=== PATIENT | male | born 1975 | race Hispanic/Latino ===

== ENCOUNTER 2016-11-05 15:35 | Emergency (ER) | payer MEDICARE ==
[2016-11-05 16:06] LABS: Basophils % (Auto) 0.7 % (0.0-1.8); Eosinophils % (Auto) 1.4 % (0.0-4.3); Hematocrit 37.9 % (35.5-45.6); Mean Corpuscular HGB Conc 34 % (32-34); Mean Corpuscular Hemoglobin 30 pg (28-32); Mean Corpuscular Volume 87 fl (84-94); Platelet Count 224 K/mm3 (140-440); Red Blood Count 4.37 M/mm3 (3.65-5.03); Red Cell Distribution Width 13.6 % (13.2-15.2); White Blood Count 6.9 K/mm3 (4.5-11.0)
[2016-11-05 16:23] LABS: Anion Gap 18 mmol/L; BUN/Creatinine Ratio 18.57; Blood Urea Nitrogen 13 mg/dL (9-20); Calcium 8.7 mg/dL (8.4-10.2); Carbon Dioxide 23 mmol/L (22-30); Chloride 101.8 mmol/L (98-107); Glucose 98 mg/dL (75-100); Potassium 3.5 mmol/L (3.6-5.0); Sodium 139 mmol/L (137-145)
[2016-11-05 16:30] LABS: Urine Drugs of Abuse Note Disclamer
[2016-11-05 16:44] LABS: Bilirubin,Urine NEG (Negative); Blood,Urine NEG (Negative); Ketones,Urine NEG (Negative); Leukocyte Esterase,Urine NEG (Negative); Mucus,Urine FEW /HPF; Nitrite,Urine NEG (Negative); Protein,Urine <15 mg/dL mg/dL (Negative); RBC,Urine < 1.0 /HPF (0.0-6.0); Urobilinogen,Urine < 2.0 mg/dL (<2.0)
--- NOTE | 2016-11-05 19:10 | Emergency Department Report ---
ED Psych HPI - General Chief Complaint: Psych Stated Complaint: 1013 Time Seen by Provider: 11/05/16 17:33 Source: patient Mode of arrival: Ambulatory - History of Present Illness Initial Comments: 41-year-old male with a history of psychiatric illness not taking his meds here with complaint of suicidality. He is feeling very anxious and depressed and wants to harm himself. He does not have a current plan. He has in the past taken pills although he does not have access to any pills currently MD Complaint: suicidal ideation -: Gradual Associated Psychiatric Symptoms: depression, suicidal ideation, racing thoughts History of same: Yes Quality: constant Improves With: none Worsens With: none Context: not taking psychiatric Associated Symptoms: other. denies: confusion, headache, shortness of breath, nausea, vomiting, syncope, insomnia - Related Data Allergies Allergy/AdvReac Type Severity Reaction Status Date / Time No Known Allergies Allergy Unverified 11/05/16 15:41 ED Review of Systems ROS: Stated complaint: 1013 Other details as noted in HPI Comment: All other systems reviewed and negative Constitutional: denies: chills, fever Eyes: denies: eye pain, eye discharge, vision change ENT: denies: ear pain, throat pain Respiratory: denies: cough, shortness of breath, wheezing Cardiovascular: denies: chest pain, palpitations Endocrine: no symptoms reported Gastrointestinal: denies: abdominal pain, nausea, diarrhea Genitourinary: denies: urgency, dysuria Musculoskeletal: denies: back pain, joint swelling, arthralgia Skin: denies: rash, lesions Neurological: denies: headache, weakness, paresthesias Psychiatric: anxiety, depression, suicidal thoughts Hematological/Lymphatic: denies: easy bleeding, easy bruising ED Past Medical Hx - Past Medical History Previous Medical History?: No Hx Psychiatric Treatment: Yes (DEPRESSION / ANXIETY / PARANOIA / BIPOLAR / SCHIZOPHRENIA) - Surgical History Past Surgical History?: No - Family History Family history: no significant - Social History Smoking Status: Former Smoker Substance Use Type: Prescribed ED Physical Exam - General Limitations: No Limitations General appearance: alert, in no apparent distress - Head Head exam: Present: atraumatic, normocephalic - Eye Eye exam: Present: normal appearance - ENT ENT exam: Present: mucous membranes moist - Neck Neck exam: Present: normal inspection - Respiratory Respiratory exam: Present: normal lung sounds bilaterally. Absent: respiratory distress - Cardiovascular Cardiovascular Exam: Present: regular rate, normal rhythm. Absent: systolic murmur, diastolic murmur, rubs, gallop - GI/Abdominal GI/Abdominal exam: Present: soft, normal bowel sounds - Rectal Rectal exam: Present: deferred - Extremities Exam Extremities exam: Present: normal inspection - Back Exam Back exam: Present: normal inspection - Neurological Exam Neurological exam: Present: alert, oriented X3 - Psychiatric Psychiatric exam: Present: depressed, flat affect, suicidal ideation - Skin Skin exam: Present: warm, dry, intact, normal color. Absent: rash ED Course Vital Signs 11/05/16 11/05/16 15:46 18:35 Temperature 98.0 F Pulse Rate 81 Respiratory 17 20 Rate Blood Pressure 108/71 O2 Sat by Pulse 97 99 Oximetry ED Medical Decision Making - Lab Data Result diagrams: 11/05/16 15:53 11/05/16 15:53 Laboratory Results - last 24 hr 11/05/16 11/05/16 11/05/16 15:53 15:53 15:53 WBC 6.9 RBC 4.37 Hgb 13.0 Hct 37.9 MCV 87 MCH 30 MCHC 34 RDW 13.6 Plt Count 224 Lymph % (Auto) 32.4 [place] % (Auto) 10.5 H Eos % (Auto) 1.4 Baso % (Auto) 0.7 Lymph # 2.2 [place] # 0.7 Eos # 0.1 Baso # 0.0 Seg Neutrophils % 55.0 Seg Neutrophils # 3.8 Sodium 139 Potassium 3.5 L Chloride 101.8 Carbon Dioxide 23 Anion Gap 18 BUN 13 Creatinine 0.7 L Estimated GFR > 60 BUN/Creatinine Ratio 18.57 Glucose 98 Calcium 8.7 Urine Color Urine Turbidity Urine pH Ur Specific [place] Urine Protein Urine Glucose (UA) Urine Ketones Urine Blood Urine Nitrite Urine Bilirubin Urine Urobilinogen Ur Leukocyte Esterase Urine WBC (Auto) Urine RBC (Auto) U Epithel Cells (Auto) Urine Mucus Urine Opiates Screen Urine Methadone Screen Ur Barbiturates Screen Ur Phencyclidine Scrn Ur Amphetamines Screen U Benzodiazepines Scrn Urine Cocaine Screen U Marijuana (THC) Screen Drugs of Abuse Note Plasma/Serum Alcohol < 0.01 11/05/16 11/05/16 16:23 16:23 WBC RBC Hgb Hct MCV MCH MCHC RDW Plt Count Lymph % (Auto) [place] % (Auto) Eos % (Auto) Baso % (Auto) Lymph # [place] # Eos # Baso # Seg Neutrophils % Seg Neutrophils # Sodium Potassium Chloride Carbon Dioxide Anion Gap BUN Creatinine Estimated GFR BUN/Creatinine Ratio Glucose Calcium Urine Color Yellow Urine Turbidity Clear Urine pH 6.0 Ur Specific [place] 1.015 Urine Protein <15 mg/dl Urine Glucose (UA) Neg Urine Ketones Neg Urine Blood Neg Urine Nitrite Neg Urine Bilirubin Neg Urine Urobilinogen < 2.0 Ur Leukocyte Esterase Neg Urine WBC (Auto) 1.0 Urine RBC (Auto) < 1.0 U Epithel Cells (Auto) < 1.0 Urine Mucus Few Urine Opiates Screen Presumptive negative Urine Methadone Screen Presumptive negative Ur Barbiturates Screen Presumptive negative Ur Phencyclidine Scrn Presumptive negative Ur Amphetamines Screen Presumptive negative U Benzodiazepines Scrn Presumptive negative Urine Cocaine Screen Presumptive negative U Marijuana (THC) Screen Presumptive negative Drugs of Abuse Note Disclamer Plasma/Serum Alcohol - Medical Decision Making 41-year-old male with history of SI psychiatric illness. Plan tender team patient he will be evaluated by psychiatry. Anticipate hold for placement. Portions of this chart were dictated with dictation software. There may be dictation errors contained within this note. Critical care attestation.: If time is entered above; I have spent that time in minutes in the direct care of this critically ill patient, excluding procedure time. ED Disposition Clinical Impression: Suicidal ideation Disposition: DC/TX-65 PSY HOSP/PSY UNIT Is pt being admited?: No Condition: Stable Referrals: PRIMARY CARE, [Primary Care Provider] - 3-5 Days
--- NOTE | 2016-11-06 14:03 | Consultation ---
History of Present Illness - Reason for Consult Consult date: 11/06/16 Reason for consult: Mental Health Evaluation Requesting physician: ADRIANO BUTLER - Chief Complaint Chief complaint: "It's the voices in the TV" - History of Present Psychiatric Illness 41-year-old male with a history of psychiatric illness not taking his meds here with complaint of suicidality. Today patient is calm and cooperative during the assessment. He stated that he was a patient at [facility] 2 weeks ago. He stated that he ran out of medications and he started experiences voices from the TV ([employer]). He stated the TV is telling him to stay away from [place], [place] and other major cities. He stated that he is suicidal because he want the TV's to stop taking to him. Patient does not have a plan at this time. He stated that he taken Risperdal, Cogentin, and Zoloft. He stated that the Risperdal does not work, he prefer Seroquel. He denies HI's, VH's, but stated that his sleep is erratic because of the voices. He denies recreational drug use and excessive alcohol consumption. Medications and Allergies Allergies Allergy/AdvReac Type Severity Reaction Status Date / Time No Known Allergies Allergy Unverified 11/05/16 15:41 Past psychiatric history - Past Medical History Past Medical History: No medical history Past Surgical History: No surgical history - past Psychiatric treatment and history Psych: Schizophrenia psychiatric treatment history: Patient been in multiple inpatient settings. He denies a fam psy hx. - Social History Social history: other (HS, homeless) Mental Status Exam - Vital signs Last Vital Signs Temp 98 F 11/06/16 05:07 Pulse 79 11/06/16 05:07 Resp 18 11/06/16 10:52 BP 104/72 11/06/16 05:07 Pulse Ox 97 11/06/16 05:07 - Exam Narrative exam: ROS: (+) Psychosis MSE: Appearance: cooperative, calm Behavior: regular eye contact Speech: regular rate and tone Mood: "I am not sure" Affect: labile Thought Process: circumstantial Thought Content: denies HI's and VH's, delusional Motor Activity: ambulatory Cognition: A/Ox 3 Insight: limited Judgment: limited Results Result Diagrams: 11/05/16 15:53 11/05/16 15:53 Abnormal lab results 11/05/16 11/05/16 Range/Units 15:53 15:53 [place] % (Auto) 10.5 H (0.0-7.3) % Potassium 3.5 L (3.6-5.0) mmol/L Creatinine 0.7 L (0.8-1.5) mg/dL All other labs normal. Assessment and Plan Assessment and plan: Impression: Historical Dx: Schizophrenia Paranoid type. Today patient is calm and cooperative during the assessment. Patient is experiencing ideas of reference. DDx: Schizoaffective DO Recommendation/Plan: Continue to 1013 with placement to inpatient psy services. Start Seroquel 100 mg for mood/psychotic symptoms and Cogentin 0.5 mg PO HS for EPS prevention. Discussed possible metabolic side effects of Seroquel with patient.
[2016-11-06] MEDS: COGENTIN PO SCH (22:57)
--- NOTE | 2016-11-07 12:07 | Progress Note ---
Subjective - Reason for Consult Consult date: 11/07/16 Reason for consult: Psychiatry Follow-up - Chief Complaint Chief complaint: "It's the voices in the TV" 41-year-old male with a history of psychiatric illness not taking his meds here with complaint of suicidality. Today patient is calm and cooperative during assessment. He stated that he does not fear the voices from the TV and feel safe now. He stated, "I may have needed rest." He stated that he feel like he can return to [place], [place]. Patient stated that he was born in [place] ( fearful to return to [place] per ideas of reference yesterday). Yesterday, patient was disorganized and delusional with his thoughts. He denies SI/HI's and AVH's. He denies a poor appetite and sleep disturbances. He denies any side effect of his medications. Mental Status Exam - Vital signs Last Vital Signs Temp 98.4 F 11/06/16 23:07 Pulse 94 H 11/06/16 23:07 Resp 18 11/06/16 23:08 BP 136/79 11/06/16 23:07 Pulse Ox 96 11/06/16 23:07 - Exam Narrative exam: MSE: Appearance: cooperative, calm Behavior: regular eye contact Speech: regular rate and tone Mood: "okay" Affect: labile Thought Process: circumstantial Thought Content: denies SI/HI's and AVH's Motor Activity: ambulatory Cognition: A/Ox 3 Insight: limited Judgment: limited Assessment and Plan Impression: Historical Dx: Schizophrenia Paranoid type. Today patient is calm and cooperative during the assessment. Denies AH's. Recommendation/Plan: Continue to 1013 with placement to inpatient psy services. Continue Seroquel 100 mg for mood/psychotic symptoms and Cogentin 0.5 mg PO HS for EPS prevention. Discussed possible metabolic side effects of Seroquel with patient.
[2016-11-07] MEDS: COGENTIN PO SCH (22:18)
[2016-11-08] MEDS: COGENTIN PO SCH (22:19)
--- NOTE | 2016-11-09 12:01 | Progress Note ---
Subjective - Reason for Consult Consult date: 11/09/16 Reason for consult: Psychiatry Follow-up - Chief Complaint Chief complaint: "I feel much better" 41-year-old male with a history of psychiatric illness not taking his meds here with complaint of suicidality. Today patient is calm and cooperative during assessment. He stated that the voices has ceased and denies SI/HI's. He stated that he resides at a local jail. He denies sleep disturbance and a poor appetite. He denies any side effects of his medications. Mental Status Exam - Vital signs Last Vital Signs Temp 97.5 F L 11/09/16 09:38 Pulse 80 11/09/16 09:38 Resp 18 11/09/16 09:38 BP 119/78 11/09/16 09:38 Pulse Ox 97 11/09/16 09:38 - Exam Narrative exam: MSE: Appearance: cooperative, calm Behavior: regular eye contact Speech: regular rate and tone Mood: "okay" Affect: congruent to mood Thought Process: linearl Thought Content: denies SI/HI's and AVH's Motor Activity: ambulatory Cognition: A/Ox 3 Insight: fair Judgment: fair Assessment and Plan Impression: Historical Dx: Schizophrenia Paranoid type. Today patient is calm and cooperative during the assessment. Denies AH's. Patient is no threat to self. Recommendation/Plan: Rescind 1013. Patient can follow-up with outpatient psy services ([facility] Continue Seroquel 100 mg for mood/psychotic symptoms and Cogentin 0.5 mg PO HS for EPS prevention. Discussed possible metabolic side effects of Seroquel with patient. Calibration Tester needed, patient need transportation to jail.
[2016-11-09] MEDS: COGENTIN PO SCH (22:29)
[2016-11-10 16:24] VITALS: BP 138/81
== END 2016-11-10 16:24 | disposition home or self-care (01) ==
LOC: EEVIPCON 15:35 → ED 15:35
DX: R45.851 Suicidal ideations (principal); F41.9 Anxiety disorder, unspecified; Z87.891 Personal history of nicotine dependence; F20.9 Schizophrenia, unspecified
CPT/HCPCS: 36415; 80048; 80307; 81001; 85025; 99284; G0480; 80320

== ENCOUNTER 2022-01-03 11:01 | Emergency (ER) | payer SELFPAY ==
[2022-01-03 13:50] LABS: BUN/Creatinine Ratio 11; Basophils % (Auto) 0.4 % (0.0-1.8); Blood Urea Nitrogen 10 mg/dL (9-20); Calcium 9.4 mg/dL (8.4-10.2); Eosinophils # (Auto) 0.1 K/mm3 (0.0-0.4); Hematocrit 42.9 % (35.5-45.6); Hemolysis Index 16; Lymphocytes # (Auto) 2.4 K/mm3 (1.2-5.4); Lymphocytes % (Auto) 33.5 % (13.4-35.0); Mean Corpuscular HGB Conc 33 % (32-34); Mean Corpuscular Volume 87 fl (84-94); Monocytes # (Auto) 0.6 K/mm3 (0.0-0.8); Monocytes % (Auto) 7.7 % (0.0-7.3); Platelet Count 298 K/mm3 (140-440); Red Blood Count 4.91 M/mm3 (3.65-5.03); Red Cell Distribution Width 14.4 % (13.2-15.2)
[2022-01-03 15:12] LABS: Amphetamine Screen,Urine PRESUMPTIVE NEGATIVE; Benzodiazepines Screen,Urine PRESUMPTIVE NEGATIVE; Cannabinoid Screen,Urine PRESUMPTIVE NEGATIVE; Cocaine Screen,Urine PRESUMPTIVE NEGATIVE; Methadone Screen,Urine PRESUMPTIVE NEGATIVE; Opiate Screen,Urine PRESUMPTIVE NEGATIVE
[2022-01-03 15:32] LABS: Mucus,Urine FEW /HPF
--- NOTE | 2022-01-03 16:29 | Emergency Department Report ---
ED Psych HPI - General Chief Complaint: Psych Stated Complaint: SI/DEPRESSION Time Seen by Provider: 01/03/22 15:37 Source: patient Mode of arrival: Ambulatory - History of Present Illness Initial Comments: 46 yo male with history of depression, bipolar disorder, and schizophrenia presents to the emergency department with an acute onset of anxiety, depression, and suicidal ideations, today. Patient states that he has a plan to overdose on some of his psychiatric medications. However, patient has not made an attempt. Patient denies homicidal ideations or hallucinations. Patient cannot place the event that caused him acute onset of the symptoms. Denies alleviating factors. Reports similar in the past. - Related Data Home Medications Medication Instructions Recorded Confirmed Last Taken Benztropine [Cogentin] 0.5 mg PO QHS 01/03/22 01/03/22 Unknown Zoloft 01/03/22 Unknown risperiDONE [RisperDAL] 01/03/22 Unknown Allergies Allergy/AdvReac Type Severity Reaction Status Date / Time No Known Allergies Allergy Verified 01/03/22 11:16 ED Review of Systems ROS: Stated complaint: SI/DEPRESSION Other details as noted in HPI Comment: All other systems reviewed and negative Constitutional: denies: chills, fever Eyes: denies: eye pain, eye discharge, vision change ENT: denies: ear pain, throat pain Respiratory: denies: cough, shortness of breath, wheezing Cardiovascular: denies: chest pain, palpitations Endocrine: no symptoms reported Gastrointestinal: denies: abdominal pain, nausea, diarrhea Genitourinary: denies: urgency, dysuria Musculoskeletal: denies: back pain, joint swelling, arthralgia Skin: denies: rash, lesions Neurological: denies: headache, weakness, paresthesias Psychiatric: anxiety, depression, suicidal thoughts Hematological/Lymphatic: denies: easy bleeding, easy bruising ED Past Medical Hx - Past Medical History Previous Medical History?: Yes Hx Psychiatric Treatment: Yes (DEPRESSION / ANXIETY / PARANOIA / BIPOLAR / SCHIZOPHRENIA) - Social History Smoking Status: Unknown if ever smoked Substance Use Type: None - Medications Home Medications: Home Medications Medication Instructions Recorded Confirmed Last Taken Type Benztropine [Cogentin] 0.5 mg PO QHS 01/03/22 01/03/22 Unknown History Zoloft 01/03/22 Unknown History risperiDONE [RisperDAL] 01/03/22 Unknown History ED Physical Exam - General Limitations: No Limitations General appearance: alert, in no apparent distress - Head Head exam: Present: atraumatic, normocephalic - Eye Eye exam: Present: normal appearance, PERRL, EOMI - ENT ENT exam: Present: mucous membranes moist - Neck Neck exam: Present: normal inspection - Respiratory Respiratory exam: Present: normal lung sounds bilaterally. Absent: respiratory distress - Cardiovascular Cardiovascular Exam: Present: regular rate, normal rhythm. Absent: systolic murmur, diastolic murmur, rubs, gallop - GI/Abdominal GI/Abdominal exam: Present: soft, normal bowel sounds - Rectal Rectal exam: Present: deferred - Extremities Exam Extremities exam: Present: normal inspection - Back Exam Back exam: Present: normal inspection - Neurological Exam Neurological exam: Present: alert, oriented X3 - Psychiatric Psychiatric exam: Present: depressed, anxious, suicidal ideation. Absent: manic, homicidal ideation - Skin Skin exam: Present: warm, dry, intact, normal color. Absent: rash ED Course Vital Signs 01/03/22 01/03/22 15:16 15:56 Temperature 97.8 F Pulse Rate 70 Respiratory 20 Rate Blood Pressure 116/73 [Right] O2 Sat by Pulse 97 97 Oximetry - Reevaluation(s) Reevaluation #1: 01/03/22 16:27 This patient is medically cleared for mental health evaluation and disposition per their decision. ED Medical Decision Making - Lab Data Result diagrams: 01/03/22 12:51 01/03/22 12:51 - Medical Decision Making This is a 46-year-old male with history of bipolar disorder and schizophrenia who presents to the emergency department complaining of acute onset of anxiety, depression, and suicidal ideations with a plan. Initial vital signs were unimpressive physical exam was concerning for a depressed hearing patient. Patient was placed on a 1013. Patient's blood work was unremarkable. Patient was medically cleared for psychiatric evaluation and disposition. Critical care attestation.: If time is entered above; I have spent that time in minutes in the direct care of this critically ill patient, excluding procedure time. ED Disposition Clinical Impression: Suicidal ideation Disposition: 30 STILL A PATIENT Is pt being admited?: No Condition: Stable
[2022-01-03 17:48] LABS: Bilirubin,Urine NEG (Negative); Blood,Urine NEG (Negative); Color,Urine Yellow (Yellow); Protein,Urine <15 mg/dL mg/dL (Negative); Urobilinogen,Urine < 2 mg/dL (<2.0)
--- NOTE | 2022-01-04 09:24 | Consultation ---
History of Present Illness - Reason for Consult Consult date: 01/04/22 Reason for consult: SI - History of Present Psychiatric Illness The patient was seen today. He is a 46y/o male who states he presented to the ER for SI, depression and anxiety. It appears the patient's symptoms are based around the fact that he has ran out of money. The patient says at that time he though about overdosing on pills. He says he took a greyhound from [place] and been here for 4 days. He says he was staying at a hotel but ran out of money. I ask the patient was that the reason he came to the ER, he says "yes jessica, but my meds are not working either." The patient says he gets his funds at the first of the month. He says right now he is homeless. The patient says he has schizophrenia. He says he takes cogentin 0.5qhs, zoloft 50mg and risperidone 0.5 BID, but he doesn't feel they are working well. 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 He is denying SI/HI or hallcuinations at present. The patient is asking for jail resources. The patient says he is single, and completed the 10th grade. Will adjust the patient medications, and have the mechanism inspector to give the patient outpatient resources and complete safety plan. REVIEW OF SYSTEMS Constitutional: Negative for weight loss ENT: Negative for stridor Respiratory: Negative for cough or hemoptysis All other systems reviewed and are negative MENTAL STATUS EXAMINATION General Appearance and Behavior: Age appropriate, wearing appropriate clothes, polite with questioning, good eye contact Cooperation: cooperative Psychomotor Behavior: Psychomotor increased Mood: better Affect and affective range: congruent with stated mood Thought Process: goal directed Thought Content: within reality Speech: Fast rate and rhythm, normal volume Suicidal Ideation: Denies Homicidal Ideation: Denies Hallucination: Denies Delusions: None elicited Impulse Control: Limited Insight and Judgment: Limited Memory: Good Attention: Attentive Orientation: Alert and oriented x 3 ASSESSMENT: Schizophrenia TREATMENT: d/c 1013 Risperidone 1mg po BID Zoloft 100mg po daily Cogentin 0.5mg po BID Buspar 10mg po BID Risks, benefits and alternatives of medications discussed with the patient, questions answered and consent obtained from patient. PSYCHOTHERAPY: Supportive psychotherapy provided MEDICAL: Per primary team DELIRIUM PRECAUTIONS: Please re-orient patient frequently, keep lights on during the day, and minimize benzodiazepines and opiates as these medications could worsen patient's confusion. GRAB DRIVER: Defer to primary DISPOSITION: Do not Recommend acute inpatient psychiatric hospitalization. The patient understands that if SI/HI are to arise he is to seek immediate assistance. The mechanism inspector to give all necessary resources and complete safety plan. FOLLOW-UP: Will sign off. Thanks Case staffed with Dr. Barney Camargo Medications and Allergies Allergies Allergy/AdvReac Type Severity Reaction Status Date / Time No Known Allergies Allergy Verified 01/03/22 11:16 Home Medications Medication Instructions Recorded Confirmed Last Taken Type Zoloft 01/03/22 Unknown History risperiDONE [RisperDAL] 01/03/22 Unknown History Benztropine [Cogentin] 0.5 mg PO BID #60 tab 01/04/22 Unknown Rx Sertraline [Zoloft] 100 mg PO QDAY #30 01/04/22 Unknown Rx busPIRone [Buspar] 10 mg PO BID #60 tab 01/04/22 Unknown Rx risperiDONE [RisperDAL] 1 mg PO BID #60 tablet 01/04/22 Unknown Rx Mental Status Exam - Vital signs Last Vital Signs Temp 97.9 F 01/04/22 02:21 Pulse 80 01/04/22 02:21 Resp 18 01/04/22 02:21 BP 144/79 01/04/22 02:21 Pulse Ox 96 01/04/22 02:21 Results Result Diagrams: 01/03/22 12:51 01/03/22 12:51 Abnormal lab results 01/03/22 01/03/22 01/03/22 Range/Units 11:44 12:51 12:51 [place] % (Auto) 7.7 H (0.0-7.3) % Urine WBC (Auto) 7.0 H (0.0-6.0) /HPF Salicylates < 0.3 L (2.8-20.0) mg/dL Acetaminophen (10.0-30.0) ug/mL 01/03/22 Range/Units 12:51 [place] % (Auto) (0.0-7.3) % Urine WBC (Auto) (0.0-6.0) /HPF Salicylates (2.8-20.0) mg/dL Acetaminophen 5.0 L (10.0-30.0) ug/mL All other labs normal.
[2022-01-04 10:33] VITALS: BP 115/76
== END 2022-01-04 12:50 | disposition still patient (30) ==
LOC: ED 11:01
DX: R45.851 Suicidal ideations (principal); Z20.822 Contact with and (suspected) exposure to COVID-19
CPT/HCPCS: 36415; 80048; 80307; 81001; 85025; 99284; U0003; 80320; G0480